=== PATIENT | female | born 2000 | race Two or more races ===

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

== ENCOUNTER 2021-07-13 10:17 | Emergency (ER) | payer MEDICAID ==
[~2021-07-13] VITALS: Ht 154.9 cm; Wt 48.5 kg
[2021-07-13] MEDS ORDERED: ONDANSETRON HCL 4 MG/2 ML VIAL IV ONE (11:15)
[2021-07-13] MEDS ORDERED: SODIUM CHLORIDE 0.9% 500 ML IVB ONE (11:15)
[2021-07-13] MEDS ORDERED: SODIUM CHLORIDE 0.9% 1,000 ML IV ONE (11:15)
[2021-07-13 11:52] LABS: Basophils # (auto) 0 10 ^3/uL (0-0.2); Basophils % (auto) 0.1 % (0.0-2.0); Eosinophils # (auto) 0 10 ^3/uL (0-0.8); Eosinophils % (auto) 0.1 % (0.0-7.0); Hematocrit 36.1 % (36.0-46.0); Hemoglobin 12.6 g/dL (12.2-16.2); Lymphocytes # (auto) 0.6 10 ^3/uL (0.4-5.4); Lymphocytes % (auto) 7.1 % (10.0-50.0); Mean Corpuscular Hemoglobin 32.2 pg (28.0-32.0); Mean Corpuscular Hgb Conc. 34.9 g/dL (32.0-36.0); Mean Corpuscular Volume 92.2 fL (80.0-100.0); Monocytes # (auto) 0.9 10 ^3/uL (0-1.3); Monocytes % (auto) 10.2 % (0.0-12.0); Neutrophils # (auto) 7.1 10 ^3/uL (1.6-8.6); Neutrophils % (auto) 82.5 % (37.0-80.0); Red Blood Cells 3.92 10^6/uL (4.0-5.20); Red Cell Distribution Width 13.4 % (11.8-14.3); White Blood Cell 8.6 10^3/uL (4.4-10.8)
[2021-07-13 12:05] LABS: BUN/Creatinine Ratio 19.6; Calcium 8.8 mg/dL (8.5-10.1)
[2021-07-13] MEDS ORDERED: POTASSIUM EFFERVESENT TAB 25 MEQ PO ONE (12:45)
[2021-07-13 12:48] LABS: Urine Bacteria MANY /hpf (None Seen); Urine Blood Negative /uL (Negative); Urine Mucus FEW (None Seen); Urine WBC 199 /hpf (0 - 5); Urine WBC Clumps PRESENT /hpf (None Seen)
[2021-07-13] MEDS ORDERED: cefTRIAXone 1GM/50ML D5W 50 ML IV ONE (13:15)
[2021-07-13 13:31] VITALS: BP 102/55
== END 2021-07-13 14:13 | disposition home or self-care (01) ==
LOC: ER 10:17
DX: O23.42 Unspecified infection of urinary tract in pregnancy, second trimester (principal); N39.0 Urinary tract infection, site not specified; O26.892 Other specified pregnancy related conditions, second trimester; E87.6 Hypokalemia; Z3A.18 18 weeks gestation of pregnancy
CPT/HCPCS: 36415; 76805; 80048; 81001; 83735; 85025; 96361; 96365; 96375; 99284; J0696; J2405; J7030; J7040

== ENCOUNTER 2023-03-29 23:32 | Emergency (ER) | payer MEDICAID ==
[~2023-03-29] VITALS: Ht 152.4 cm; Wt 51.0 kg
[2023-03-29 23:40] VITALS: BP 127/73; PULSE 102; RESP 18; O2SAT 100
[2023-03-30] MEDS ORDERED: ONDANSETRON ODT 4 MG TAB PO ONE
[2023-03-30] MEDS ORDERED: HYDROcodone-ACET 5/325MG TAB PO ONE
[2023-03-30] MEDS ORDERED: IBUPROFEN 600 MG TAB PO ONE
[2023-03-30 00:05] LABS: Basophils # (auto) 0.1 10 ^3/uL (0-0.2); Basophils % (auto) 0.7 % (0.0-2.0); Eosinophils # (auto) 0.3 10 ^3/uL (0-0.8); Hematocrit 37.5 % (36.0-46.0); Hemoglobin 12.3 g/dL (12.2-16.2); Lymphocytes # (auto) 1.6 10 ^3/uL (0.4-5.4); Lymphocytes % (auto) 18.2 % (10.0-50.0); Mean Corpuscular Hemoglobin 27.8 pg (28.0-32.0); Mean Corpuscular Hgb Conc. 32.7 g/dL (32.0-36.0); Mean Corpuscular Volume 85.1 fL (80.0-100.0); Monocytes # (auto) 0.7 10 ^3/uL (0-1.3); Neutrophils # (auto) 6.2 10 ^3/uL (1.6-8.6); Neutrophils % (auto) 70.1 % (37.0-80.0); Red Blood Cells 4.41 10^6/uL (4.0-5.20); Red Cell Distribution Width 15.8 % (11.8-14.3); White Blood Cell 8.8 10^3/uL (4.4-10.8)
[2023-03-30 00:15] LABS: Urine Bacteria FEW /hpf (None Seen); Urine Blood Negative /uL (Negative); Urine Clarity Clear (Clear); Urine Color Colorless (Yellow); Urine Protein, UAD Negative (Negative); Urine Specific Gravity 1.014 (1.001-1.035); Urine WBC 9 /hpf (0 - 5); Urine pH 6.5 (5.0-8.0)
[2023-03-30 00:19] LABS: Albumin 3.9 g/dL (3.4-5.0); BUN/Creatinine Ratio 11.9 (10.0-20.0); Calcium 8.8 mg/dL (8.5-10.1); Potassium 3.6 mmol/L (3.5-5.1)
[2023-03-30 00:28] LABS: Bilirubin, Total 0.2 mg/dL (0.2-1.0); Total Protein 8.3 g/dL (6.4-8.2)
[2023-03-30 00:29] LABS: INR 0.99 (0.9-1.15); Prothrombin Time 10.4 sec (9.3-11.8)
[2023-03-30 00:58] LABS: Alcohol, Urine < 3.0 mg/dL (0-10); Barbiturate Scree,Urine NEGATIVE (NEGATIVE); Benzodiazephine Screen, Urine NEGATIVE (NEGATIVE); Cocaine Screen, Urine NEGATIVE (NEGATIVE); Opiate Scree,Urine NEGATIVE (NEGATIVE); Phencyclidine Screen, Urine NEGATIVE (NEGATIVE)
[2023-03-30 01:06] LABS: Amphetamine Screen, Urine NEGATIVE (NEGATIVE); Cannabinoid Screen, Urine POSITIVE (NEGATIVE)
== END 2023-03-30 04:10 | disposition left against medical advice (07) ==
LOC: ER 23:32
DX: R10.9 Unspecified abdominal pain (principal); R10.2 Pelvic and perineal pain; R11.0 Nausea; Z87.442 Personal history of urinary calculi; Z79.899 Other long term (current) drug therapy
CPT/HCPCS: 36415; 71045; 74176; 80053; 80307; 80320; 81001; 83605; 83690; 83735; 84702; 85025; 85610; 85730; 87086; 99284; Q0162